=== PATIENT | female | born 1945 | race Caucasian/White ===

== ENCOUNTER 2019-02-14 15:45 | Inpatient (IN) ==
[2019-02-14] MEDS ORDERED: DESYREL PO PRN (17:00)
[2019-02-14] MEDS ORDERED: NEURONTIN PO SCH (17:00)
[2019-02-14] MEDS ORDERED: PHENERGAN IV PRN (17:00)
[2019-02-14] MEDS ORDERED: SODIUM CHLORIDE 0.9% INJ PRN (17:00)
[2019-02-14 17:56] LABS: HEMATOCRIT 47.4 % (37.0-47.0); HEMOGLOBIN 15.1 g/dL (12.0-16.0); MCH 31.7 PG (27-31); MCHC 31.9 g/dL (33-37); MCV 99.6 FL (81-99); MPV 10.8 FL (7.4-10.4); RBC 4.76 XMIL (4.2-5.4); WBC 10.58 X1000 (4.8-10.8)
[2019-02-14 18:19] LABS: CALCIUM 9.5 mg/dL (8.8-10.2); CREATININE 1.4 mg/dL (0.5-0.9); POTASSIUM 5.4 mmol/L (3.5-5.1)
[2019-02-14] MEDS: NS 1,000 ML IV SCH (18:22)
[2019-02-14] MEDS: ROCEPHIN 1 GM in NS 50 ML IV SCH (18:32)
[2019-02-14] MEDS: SOLU-MEDROL IV SCH (18:33)
[2019-02-14] MEDS: LOVENOX SUBQ SCH (18:33)
--- NOTE | 2019-02-14 19:13 | Diag Imaging Result Doc PS360 ---
EXAM: CHEST-2 VIEWS INDICATION: dyspnea TECHNIQUE: 2 views COMPARISON: 04/12/2018 FINDINGS: The lungs appear somewhat hyperinflated suggesting likely mild COPD, stable. The lungs are grossly clear. There is no discrete pleural fluid collection or pneumothorax. The cardiomediastinal silhouette and central vasculature are grossly unremarkable. IMPRESSION: Suggestion of mild COPD. No definite acute chest pathology by plain radiograph. Electronically signed by Mk Gallardo 02/14/2019 7:11 PM
[2019-02-14] MEDS: DUONEB (A & A) INH SCH ×2 (19:36→23:31)
[2019-02-14] MEDS ORDERED: CALTRATE 600 PO SCH (21:00)
[2019-02-14] MEDS ORDERED: COREG PO SCH (21:00)
[2019-02-14] MEDS: DESYREL PO PRN (21:37)
[2019-02-14] MEDS: PERCOCET-10 PO PRN (21:37)
[2019-02-15 00:17] LABS: URINE SOURCE CLEAN CATCH
[2019-02-15 00:24] LABS: BILIRUBIN URINE NEGATIVE (NEGATIVE); BLOOD URINE NEGATIVE (NEGATIVE); COLOR YELLOW; GLUCOSE URINE NEGATIVE (NEGATIVE); KETONE URINE NEGATIVE (NEGATIVE); LEUKOCYTES URINE NEGATIVE (NEGATIVE); NITRITE URINE NEGATIVE (NEGATIVE); PROTEIN URINE NEGATIVE (NEGATIVE); SP GRAVITY URINE 1.013; TURBIDITY URINE CLEAR (CLEAR); UROBILINOGEN URINE NORMAL (NORMAL)
[2019-02-15 00:25] LABS: UR EPITHELIAL CELLS <10 /HPF (<10); URINE BACTERIA NEGATIVE /HPF; URINE RBC <10 /HPF (<10); URINE WBC <10 /HPF (<10)
[2019-02-15] MEDS: SOLU-MEDROL IV SCH ×3 (01:18→22:45)
[2019-02-15] MEDS: DUONEB (A & A) INH SCH ×5 (03:44→21:44)
[2019-02-15] MEDS: NS 1,000 ML IV SCH ×2 (05:56→17:33)
[2019-02-15] MEDS: PERCOCET-10 PO PRN ×4 (05:56→23:58)
[2019-02-15] MEDS: ADVAIR 500/50 DISKUS INH SCH ×2 (08:39→19:44)
[2019-02-15] MEDS ORDERED: PREVNAR 13 IM ONE (08:45)
[2019-02-15] MEDS: CYMBALTA PO SCH (09:25)
[2019-02-15] MEDS: HYZAAR 50/12.5 MG PO SCH (09:25)
[2019-02-15 09:49] LABS: CREATININE 1.2 mg/dL (0.5-0.9); POTASSIUM 4.2 mmol/L (3.5-5.1)
[2019-02-15] MEDS: WELLBUTRIN SR PO SCH ×2 (09:49→20:22)
--- NOTE | 2019-02-15 10:05 | PROGRESS NOTE ---
DATE: 02/15/2019 SUBJECTIVE: Mrs. Martinez was admitted to [facility] with an acute COPD exacerbation. Her initial chest x-ray demonstrated hyperinflation of the lung navarro. There was no evidence of pneumonia, pleural effusion, or pneumothorax. She does smoke. She continues with mild shortness of breath, diffuse wheezing, and a nonproductive cough. O2 saturations are ranging from 94% to 96% on room air. She has a history of chronic low back pain secondary to lumbar spinal stenosis with neurogenic claudication. She continues with persistent low back pain, with numbness and tingling extending into her legs bilaterally. Her symptoms are worse with prolonged sitting and standing. Family reports that she is having difficulty getting around the house. She has had multiple surgeries on her lower spine. She is currently taking Cymbalta, as well as Percocet on a p.r.n. basis. OBJECTIVE: Vital Signs: Blood pressure 146/79, pulse 79, respirations 18, she is afebrile. CV: Regular rate and rhythm. Lungs: Diffuse end-expiratory wheezing throughout all lung navarro. Abdomen: Soft, nontender, with active bowel sounds. Extremities: Without edema. LABORATORY DATA: Various laboratory studies were performed. CBC demonstrated a white count of 10.5, hemoglobin 15.1, hematocrit 47.4, and a platelet count of 215,000. Electrolytes demonstrate the following: Sodium 142, potassium 5.4, BUN 29, creatinine 1.4, and glucose 98. ASSESSMENT AND PLAN: 1. Acute chronic obstructive pulmonary disease exacerbation. She continues with a persistent cough, diffuse wheezing, and mild shortness of breath. We will add Advair 500/50 one puff twice daily, continue intravenous Solu-Medrol as well as DuoNeb nebulizer treatments. We had a long discussion about the importance of smoking cessation. I will begin Wellbutrin XR 150 mg twice daily to help with smoking cessation and to avoid withdrawal symptoms. 2. Hypertension. Her blood pressure is stable. Will continue losartan/hydrochloride 50/12.5 mg daily. 3. Chronic low back pain secondary to lumbar spinal stenosis with neurogenic claudication. We will continue duloxetine 60 mg daily and Percocet 1 tablet every 8 hours as needed for pain. We will consult Physical Therapy for evaluation. cc: Cesar Treviño MD
--- NOTE | 2019-02-15 11:02 | HISTORY AND PHYSICAL ---
CHIEF COMPLAINT: Shortness of breath. HISTORY OF PRESENT ILLNESS: The patient is a 73-year-old lady who is well known to me. She has a history of multiple medical problems including essential hypertension, chronic low back pain secondary to lumbar spinal stenosis with neurogenic claudication, and recent diagnosis of acute Coats's palsy. She presented to the office complaining of increasing shortness of breath and increasing work of breathing. She has shortness of breath with minimal activity. She has bouts of nonproductive coughing which are worse with activity. She does continue to smoke. She denies any fever, chills, nausea or vomiting. A chest x-ray demonstrated hyperinflation of the lung navarro, but no evidence of pneumothorax, pleural effusion or pneumonia. She denies any PND, orthopnea, or increasing peripheral edema. She has had no chest pain, palpitations, or anginal equivalents. PAST MEDICAL HISTORY: Essential hypertension, chronic low back pain secondary to lumbar spinal stenosis with neurogenic claudication. PAST SURGICAL HISTORY: Breast augmentation surgery, tubal ligation and lumbar diskectomy. ALLERGIES: Sulfa. FAMILY HISTORY: Her mother of complications of hemorrhagic stroke. Her father had hypertension, COPD, ischemic heart disease and lung cancer. MEDICATIONS: 1. Cymbalta 60 mg daily. 2. Percocet 10 1 q.8 hours p.r.n. pain. 3. Losartan HCT 50/12.5 mg daily. 4. Trazodone 100 mg at bedtime p.r.n. insomnia. SOCIAL HISTORY: She continues to smoke. She does consume alcoholic beverages. She lives with her spouse. REVIEW OF SYSTEMS: She denies any recent weight gain or weight loss.HEENT: No loss of visual or auditory acuity. CV: No chest pain, palpitations, or anginal equivalents. Pulmonary: See HPI. GI: No reflux, dysphagia, melena or hematochezia. Endocrine: No polyuria, no polydipsia. No cold or heat intolerance. Skin: No easy bruisability. : No leakage of urine with coughing or laughing. Neurologic: No migraines or seizures. Psychiatric: No history of depression. PHYSICAL EXAMINATION: This is a well-developed, well-nourished, 73-year-old lady in mild distress secondary to shortness of breath. VITAL SIGNS: Temperature 98.6 degrees, BP 130/72, respiratory rate 18, and pulse is 99 HEENT: Fundi with arteriolar wall thickening. Pupils equal, round, reactive to light. Extraocular eye movements intact. TMs without bullae. NECK: Supple. No masses, JVD or bruits CV: Regular rate and rhythm. LUNGS: Poor air movement. There is diffuse end expiratory wheezing with forced expiration. ABDOMEN: Soft and nontender with active bowel sounds. No hepatosplenomegaly. No abdominal bruits. EXTREMITIES: Without edema. SKIN: No palpable purpura. BREASTS/INVOICE CLERK/RECTAL: Rectal exams are deferred. NEUROLOGIC: She is alert and oriented to name, place, and time. Cranial nerves 2-12 intact grossly. She has normal tone and strength in the upper and lower extremities. Strength is 4/5 in the lower extremities bilaterally. ASSESSMENT AND PLAN: 1. Acute chronic obstructive pulmonary disease exacerbation. I am going to admit the patient to [facility]. I will begin DuoNeb nebulizer treatments q.4 hours, methylprednisolone 80 mg IV q.8 hours and Rocephin 1 g IV daily pending sputum and blood cultures. We will arrange for a Prevnar vaccination prior to discharge. She does have underlying COPD. It is imperative that she stop smoking. We talked about the risks of continued smoking as well as the benefits of smoking cessation. 2. Hypertension. Blood pressure is stable. I will continue losartan HCT 50/12.5 mg daily. 3. Chronic low back pain secondary to lumbar spinal stenosis with neurogenic claudication. We will continue duloxetine 60 mg p.o. daily and Percocet 10 1 q.8 hours p.r.n. pain. We will consult physical therapy. 4. Given her clinical presentation and comorbid conditions, I believe that admission to the hospital is reasonable. I anticipate that she will be in the hospital for at least 2 midnights, and I will therefore place her in inpatient status. I will begin Lovenox 40 mg subcutaneously daily for DVT prophylaxis. cc: Cesar Treviño MD
[2019-02-15] MEDS: TYLENOL PO PRN ×2 (11:25→17:25)
[2019-02-15] MEDS: CYANOCOBALAMIN IM SCH (15:26)
[2019-02-15] MEDS: ROCEPHIN 1 GM in NS 50 ML IV SCH (17:24)
[2019-02-15] MEDS: LOVENOX SUBQ SCH (17:26)
[2019-02-15] MEDS: DESYREL PO PRN (20:22)
[2019-02-16] MEDS: DUONEB (A & A) INH SCH ×4 (03:27→21:48)
[2019-02-16] MEDS: SOLU-MEDROL IV SCH ×3 (06:18→23:04)
[2019-02-16] MEDS: PERCOCET-10 PO PRN ×3 (06:18→18:50)
--- NOTE | 2019-02-16 07:30 | PROGRESS NOTE ---
DATE: 02/16/2019 SUBJECTIVE: Mrs. Del Rio was admitted to [facility] with an acute COPD exacerbation. We were able to reduce her nebulizer treatments to 4 times daily, and reduce the methylprednisolone to 60 mg IV every 8 hours. She is with complaint of mild dyspnea. O2 saturations are ranging from 91% to 95%. She still has some scattered wheezing with forced expiration. Her cough has improved. She was given the Prevnar vaccination on 02/15/2019. She does have a longstanding history of hypertension. Blood pressure remains well controlled. Systolic blood pressures range from 128 to 135, whereas her diastolic blood pressures have been in the 60s. She does have a longstanding history of chronic low back pain secondary to lumbar spinal stenosis. She is continuing to work with Physical Therapy. OBJECTIVE: Vital Signs: Temperature 98.4 degrees, pulse 81, respirations 16, BP 135/64. CV: Regular rate and rhythm. Lungs: Scattered end expiratory wheezing with forced expiration. There is improved air movement. Abdomen: Soft, nontender, with active bowel sounds. Extremities: Without edema. ASSESSMENT AND PLAN: 1. Acute chronic obstructive pulmonary disease exacerbation. She seems to be wheezing a little bit more this morning as compared to last night. I do not think that we can further reduce the dosage of methylprednisolone that she is taking. We will continue DuoNeb nebulizer treatments and intravenous Rocephin. I will recheck a PA and lateral chest x-ray today. We will continue Wellbutrin SR 150 mg twice daily for smoking cessation. 2. Hypertension. Blood pressure is stable. We will continue losartan/hydrochloride 50/12.5 mg daily. 3. Vitamin B12 deficiency. We will continue vitamin B12 at 1000 mcg intramuscularly daily. cc: Cesar Treviño MD
[2019-02-16] MEDS: CYANOCOBALAMIN IM SCH (09:28)
[2019-02-16] MEDS: WELLBUTRIN SR PO SCH ×2 (09:29→21:09)
[2019-02-16] MEDS: HYZAAR 50/12.5 MG PO SCH (09:29)
--- NOTE | 2019-02-16 09:31 | Diag Imaging Result Doc PS360 ---
EXAM: CHEST-2 VIEWS 02/16/2019 HISTORY: COPD TECHNIQUE: PA and lateral chest COMMENT: Considering differences in inspiration there has been no significant change since 02/14/2019. IMPRESSION: Stable chest. Electronically signed by Cristian Mccloud 02/16/2019 9:29 AM
[2019-02-16] MEDS: ADVAIR 500/50 DISKUS INH SCH ×2 (10:56→19:47)
[2019-02-16] MEDS: ROCEPHIN 1 GM in NS 50 ML IV SCH (16:43)
[2019-02-16] MEDS: LOVENOX SUBQ SCH (16:44)
[2019-02-16] MEDS: CYMBALTA PO SCH (16:45)
[2019-02-16] MEDS: DESYREL PO PRN (21:09)
[2019-02-17] MEDS: DUONEB (A & A) INH SCH ×2 (03:39→09:34)
[2019-02-17] MEDS: PERCOCET-10 PO PRN (04:12)
[2019-02-17] MEDS: SOLU-MEDROL IV SCH (06:51)
[2019-02-17 08:14] VITALS: BP 181/76
[2019-02-17] MEDS: WELLBUTRIN SR PO SCH (08:59)
[2019-02-17] MEDS: HYZAAR 50/12.5 MG PO SCH (08:59)
[2019-02-17] MEDS: CYANOCOBALAMIN IM SCH (08:59)
[2019-02-17] MEDS: CYMBALTA PO SCH ×2 (08:59→09:03)
[2019-02-17] MEDS ORDERED: PREDNISONE PO SCH (09:00)
[2019-02-17] MEDS: ADVAIR 500/50 DISKUS INH SCH (09:34)
[2019-02-17] MEDS ORDERED: ADVAIR 250/50 DISKUS INH SCH (19:30)
--- NOTE | 2019-02-18 20:34 | DISCHARGE SUMMARY ---
ADMISSION DATE: 02/14/2019 DISCHARGE DATE: 02/17/2019 DISCHARGE DIAGNOSES: 1. Chronic obstructive pulmonary disease with acute exacerbation. 2. Nicotine dependence. 3. Essential hypertension. 4. Lumbar spinal stenosis with neurogenic claudication. 5. Chronic renal disease. DISCHARGE INSTRUCTIONS: 1. Return to clinic in 7 to 10 days to see me, Dr. Jimmy Treviño, in anticipation of a transition of care visit. 2. Activity as tolerated. 3. Healthy heart diet. MEDICATIONS: Bupropion SR 150 mg b.i.d., Advair 250/50 one puff b.i.d., prednisone 10 mg daily for 2 weeks, duloxetine 60 mg daily, trazodone 100 mg at bedtime as needed for insomnia, losartan HCT 50/12.5 mg daily, Percocet 10 one q.8 hours p.r.n. pain. DISCHARGE PHYSICAL EXAMINATION: This is a well-developed, well-nourished 73-year-old lady in no apparent distress. She is afebrile, pulse 65, respirations 14, BP 146/86. CV: Regular rate and rhythm. Lungs: Clear. Abdomen: Soft, nontender with active bowel sounds. Extremities: Without edema. Ms. Sofia Martinez presented to my office with complaint of increasing shortness of breath, increasing work of breathing, nonproductive cough and pleuritic chest pain. She continues to smoke 1 pack of cigarettes per day. She denied any fever, chills, nausea or vomiting. A chest x-ray demonstrated hyperinflation of the lung navarro without evidence of pneumothorax, pleural effusion or pneumonia. The patient was treated with DuoNeb nebulizer treatments, IV steroids and IV antibiotics. Over the course of her hospitalization she made steady clinical improvement. We gradually weaned her down on the steroids without regression of her symptoms and transitioned her to oral steroids. We added Advair 250/50 one puff b.i.d., we instructed her on how to use the Advair inhaler and to gargle after each use to avoid candidiasis and oral thrush. We had a long discussion about the risks of continued smoking and the benefits of smoking cessation. We began Wellbutrin SR 150 mg b.i.d. to assist with smoking cessation and to help avoid withdrawal symptoms. A Prevnar vaccination was administered on 02/15/2019. She does have a history of hypertension. Her blood pressure was generally well controlled. We continued her losartan hydrochlorothiazide 50/12.5 mg daily. She does have a longstanding history of chronic low back pain secondary to lumbar spinal stenosis with neurogenic claudication. She was continued on Cymbalta 60 mg daily to help reduce radicular pain and she was continued on Percocet 10 one q.8 hours p.r.n. pain. She is no longer candidate for surgery. She has had multiple epidurals. We did consult physical therapy. She made good progress with physical therapy. We are going to make arrangements for her to continue home health at home with [facility]. Having reached maximum hospital benefit, the patient was discharged in stable condition. cc: Cesar Treviño MD
== END 2019-02-17 09:43 | disposition home health service (06) | DRG 192 ==
LOC: DIRADM 15:45 → 4N 16:32
PROVIDERS: ADMIT Internal Medicine; ATTEND Internal Medicine
CPT/HCPCS: 71020; 71046; 80048; 81001; 82550; 82607; 82746; 85027; 87040; 90670; 94640; 94761; 97161; A9270; J0696; J1650; J2930; J3420; J7030; J7506; J7512

== ENCOUNTER 2019-05-24 16:15 | Observation (INO) ==
[2019-05-24] MEDS ORDERED: DESYREL PO PRN (16:24)
[2019-05-24] MEDS ORDERED: SALINE LOCK IV FLUID XX ONE (16:24)
[2019-05-24 17:08] LABS: HEMATOCRIT 46.1 % (37.0-47.0); HEMOGLOBIN 14.1 g/dL (12.0-16.0); MCHC 30.6 g/dL (33-37); MCV 98.1 FL (81-99); RBC 4.7 XMIL (4.2-5.4); RDW 13.9 % (11.5-14.5); WBC 10.1 X1000 (4.8-10.8)
[2019-05-24 17:20] LABS: CALCIUM 9.6 mg/dL (8.8-10.2); CREATININE 1.3 mg/dL (0.5-0.9); POTASSIUM 4.2 mmol/L (3.5-5.1)
[2019-05-24] MEDS: MORPHINE IV PRN ×2 (17:34→21:36)
[2019-05-24] MEDS: LOVENOX SUBQ SCH (17:37)
[2019-05-24 21:06] LABS: URINE SOURCE CLEAN CATCH
[2019-05-24 21:11] LABS: BILIRUBIN URINE NEGATIVE (NEGATIVE); BLOOD URINE NEGATIVE (NEGATIVE); COLOR YELLOW; GLUCOSE URINE NEGATIVE (NEGATIVE); KETONE URINE NEGATIVE (NEGATIVE); LEUKOCYTES URINE NEGATIVE (NEGATIVE); NITRITE URINE NEGATIVE (NEGATIVE); PROTEIN URINE TRACE mg/dL (NEGATIVE); SP GRAVITY URINE 1.027; TURBIDITY URINE CLEAR (CLEAR); UROBILINOGEN URINE 2 mg/dL (NORMAL)
[2019-05-24 21:13] LABS: UR EPITHELIAL CELLS <10 /HPF (<10); URINE BACTERIA NEGATIVE /HPF; URINE RBC <10 /HPF (<10); URINE WBC <10 /HPF (<10)
[2019-05-25] MEDS: MORPHINE IV PRN ×5 (01:30→19:01)
[2019-05-25] MEDS ORDERED: PHENERGAN IV PRN (08:42)
[2019-05-25] MEDS ORDERED: DESYREL PO PRN (08:42)
[2019-05-25] MEDS ORDERED: PREDNISONE PO SCH (09:00)
[2019-05-25] MEDS ORDERED: CYMBALTA PO SCH (09:00)
[2019-05-25] MEDS ORDERED: HYZAAR 50/12.5 MG PO SCH (09:00)
[2019-05-25] MEDS: NAPROSYN PO SCH ×2 (09:14→09:19)
--- NOTE | 2019-05-25 11:30 | HISTORY AND PHYSICAL ---
CHIEF COMPLAINT: Back pain. HISTORY OF PRESENT ILLNESS: Ms. Sofia Martinez is a 73-year-old lady with a history of essential hypertension, COPD, migraine headaches and chronic low back pain secondary to lumbar spinal stenosis with neurogenic claudication. She presents to the clinic complaining of severe thoracic spine pain which has been worse over the past 10 days. She is unable to lie on her back due to the pain. Any sort of bending, lifting or other physical activity exacerbates the pain. An x-ray of the thoracic spine demonstrated an acute compression fracture at T8 and T9. A previous bone density exam demonstrated osteopenia with increased fracture risk. PAST MEDICAL HISTORY: As above. PAST SURGICAL HISTORY: Bilateral breast enlargement, tubal ligation, lumbar discectomy. SOCIAL HISTORY: She is and lives with her spouse. She does consume alcoholic beverages. She smokes everyday. FAMILY HISTORY: Her father had hypertension, ischemic heart disease, COPD and lung cancer. Her mother had a history of a hemorrhagic CVA. ALLERGIES: Sulfur. MEDICATIONS: 1. Percocet 10/325 1 q 8 hours p.r.n. pain. 2. Proventil HFA inhaler 2 puffs q 6 hours p.r.n. shortness of breath. 3. Cymbalta 60 mg daily. 4. Triamterene/HCTZ 37.5/25 1 p.o. q day. 5. Prednisone 10 mg daily. 6. Carafate 1 gram 4 times daily. 7. Losartan/HCT 50/12.5 mg daily. 8. Nexium 40 mg daily. 9. Trazodone 50 mg q bedtime p.r.n. insomnia. REVIEW OF SYSTEMS: She denies any recent weight gain or weight loss. HEENT: She wears glasses. CV: No chest pain, palpitations or anginal equivalence. Pulmonary: No shortness of breath, PND or orthopnea. GI: No reflux, dysphagia, melena, hematochezia, change in bowel habits or rectal bleeding. Endocrine: No polyuria, no polydipsia. No cold or heat intolerance. Skin: No easy bruisability. : No leakage of urine with coughing or laughing. Neurologic: She has a history of migraines. No history of seizures. PHYSICAL EXAMINATION: VITAL SIGNS: Blood pressure 140/80, pulse 92, weight 143 pounds, height 66 inches, BMI 23.1. She is afebrile. GENERAL: This is a well developed, well nourished 73-year-old lady in no apparent distress. HEENT: Fundi with arteriolar wall thickening. Pupils equal, round and reactive to light. Extraocular eye movements intact. TMs without bullae. NECK: Supple. No masses, JVD or bruits. HEART: Regular rate and rhythm. LUNGS: Clear. ABDOMEN: Soft, nontender with active bowel sounds. No hepatosplenomegaly. No abdominal bruits. EXTREMITIES: Without edema. SKIN: No palpable purpura. BREASTS/SPORTS TEAM MARKETING INTERN/RECTAL: Deferred. MUSCULOSKELETAL: She has marked spinal tenderness over the thoracic spine. NEUROLOGICAL: She is alert and oriented to name, place and time. Cranial nerves II through XII intact grossly. She has diminished light touch in the distal extremities bilaterally. She has no paraspinal muscle tenderness along the lumbar spine. ASSESSMENT AND PLAN: 1. Acute compression fracture of thoracic spine. I am going to admit the patient to [facility] for pain management. We will begin Naprosyn 500 mg b.i.d. and use morphine 2 mg IV q 4 hours p.r.n. pain. I will check an MRI of the thoracic spine with and without contrast to confirm that this is an acute compression fracture. I will consult orthopedic surgery. I suspect this is related to underlying osteopetrosis and wonder if she would be a candidate for kyphoplasty. 2. Hypertension. Her blood pressure is stable. We will continue losartan/HCT 50/12.5 mg daily. 3. Chronic low back pain secondary to lumbar spinal stenosis with neurogenic claudication. She has had multiple back surgeries. She has had epidurals and facet injections over the years. Her most recent MRI showed severe spinal stenosis. While she is on the morphine, I will hold the Percocet. We will continue Cymbalta to reduce neuropathic pain and continue Naprosyn. Given her clinical presentation, I believe that admission to the hospital for pain management is reasonable. I anticipate that she will be in the hospital for only one midnight; and I will, therefore, place her on outpatient status with observation service. cc: Cesar Treviño MD
--- NOTE | 2019-05-25 12:30 | Diag Imaging Result Doc PS360 ---
EXAM: MRI THORACIC SPINE W/WO CON 05/24/2019 HISTORY: COMPRESSION FRACTURES T8 T9 TECHNIQUE: T1-T2 and STIR sagittal, T1 and T2 axial, dose gadolinium-enhanced T1 fat sat sagittal and axial T1. COMMENT: There is decreased T1-weighted signal intensity in T8, which is also compressed anteriorly. There are similar changes in the adjacent lower endplate of T7 in the upper endplate of T9. There is also increased STIR and T2-weighted signal intensity in these areas particularly on the right side. There is intensely increased gadolinium enhancement in this area as well as in the epidural space, particularly on the right, and also in the spinous processes of T7 and T8. IMPRESSION: Anterior compression of the T8 vertebral body with signal changes in the adjacent endplates of T7 and T9, gadolinium enhancement and enhancement and thickening of the epidural space at the level of the T8 vertebral body. The possibility of a pathological process, including discitis and osteomyelitis cannot be excluded. Electronically signed by Cristian Mccloud 05/25/2019 12:28 PM
[2019-05-25 16:45] VITALS: BP 153/81
[2019-05-25] MEDS: LOVENOX SUBQ SCH (18:03)
--- NOTE | 2019-05-26 07:18 | DISCHARGE SUMMARY ---
ADMISSION DATE: 05/24/2019 DISCHARGE DATE: 05/25/2019 DISCHARGE DIAGNOSES: 1. Acute compression fracture of the 8th thoracic vertebra. 2. Essential hypertension. 3. Chronic obstructive pulmonary disease. 4. Stage 3 chronic renal insufficiency. 5. Chronic low back pain secondary to lumbar spinal stenosis with neurogenic claudication. DISCHARGE INSTRUCTIONS: 1. The patient will be transferred via ambulance to the service of Dr. Mk Parnell at [facility]. 2. Activity as tolerated. 3. Healthy heart diet. MEDICATIONS: 1. Cymbalta 60 mg daily. 2. Lovenox 40 mg subcutaneously daily. 3. Losartan HCT 50/12.5 daily. 4. Morphine 4 mg IV q.4 hours p.r.n. pain. 5. Prednisone 10 mg daily. 6. Phenergan 12.5 mg IV q.6 hours p.r.n. pain. 7. Desyrel 100 mg at bedtime p.r.n. insomnia. 8. Advair 250/50 one puff b.i.d. DISCHARGE PHYSICAL EXAMINATION: This is a well-developed, well-nourished, 73-year-old lady in no apparent distress. She is afebrile, pulse 98, respirations 22, and BP 153/81. CV: Regular rate and rhythm. Lungs: Clear. Abdomen: Soft and nontender with active bowel sounds. No hepatosplenomegaly. No abdominal bruits. HOSPITAL COURSE: Mrs. Christina Mratinez presented to my office complaining of thoracic spine pain. X- ray of the thoracic spine demonstrated an acute compression fracture at T8. The patient was admitted to [facility] as an outpatient for pain management. An MRI of the thoracic spine demonstrated anterior compression of the T8 vertebral body with signal changes in the adjacent endplates of T7 and T9. There was increased uptake of gadolinium in the epidural space as well as the spinal processes of T7 and T8. It did not appear that her compression fracture was a straight forward fracture resulting from underlying osteoporosis. We are concerned that other potential etiologies including metastases or osteomyelitis could account for the compression fracture. I have ordered a sedimentation rate as well as a serum protein immunoelectrophoresis which are pending at the time of this discharge. Her C. reactive peptide was 3.35. I spoke to Dr. Mk Parnell who recommended a CT-guided bone biopsy. Because higher staff radiologists do not routinely perform CT-guided bone biopsies, we made arrangements to transfer her to the service of Dr. Mk Parnell at [facility]. She will be scheduled for a CT-guided biopsy in the morning. She has not had any unexplained weight loss or night sweats which would be suggestive of an underlying malignancy. Certainly, it would be worthwhile to consider a CT scan of the thorax as well as abdomen and pelvis to screen for underlying malignancies. Further recommendations will be made based upon the biopsy results. I had a long discussion with and Ms. Martinez as well as their daughter Deb Davies. I have discussed the workup and management. They understand the plan of care, and are agreeable to transfer via ambulance to [facility] to the service of Dr. Mk Parnell. Having reached maximum hospital benefit, the patient was discharged in stable condition. cc: Cesar Treviño MD MTDD
== END 2019-05-25 19:18 | disposition short-term general hospital (02) ==
LOC: DIRADM → 4N 16:15
PROVIDERS: ADMIT Internal Medicine; ATTEND Internal Medicine

== ENCOUNTER 2019-09-19 13:31 | Inpatient (IN) ==
--- NOTE | 2019-09-19 14:37 | PROVIDER DOCUMENTATION ---
HPI-Musculoskeletal Pain/Inj - GENERAL Chief Complaint: Back Pain Stated Complaint: BACK PAIN Time Seen by Provider: 09/19/19 14:09 Source: patient, family (daughter and at bedside) - HX OF PRESENT ILLNESS-MUSKULOSKELTAL Nature of Presenting Problem: 73 YO F presents with c/o back pain that was acute on chronic onset on yesterday. She states she was just laying in the bed and denies any traumatic movements. She does have a hx of osteoporosis and is following Dr. Parnell in [place]. She states she has fractures in her thoracic spine. She is not currently on any treatments for osteoporosis. She is taking percocet 10 TID along with Cymbalta Review of Systems - Adult - REVIEW OF SYSTEMS - ADULT Constitutional: denies: chills, fever Eyes: reports: no symptoms reported Ears, Nose, Mouth & Throat: reports: no symptoms reported Cardiovascular: reports: chest pain (chest wall pain) Respiratory: denies: cough, shortness of breath Gastrointestinal: reports: no symptoms reported Genitourinary: reports: no symptoms reported Musculoskeletal: reports: see HPI, bone pain, back pain Integumentary: reports: no symptoms reported Neurological: reports: no symptoms reported Psychiatric: reports: no symptoms reported Past History - Adult - PAST MEDICAL HISTORY-ADULT Review of Records: reports: Old Records Reviewed, Medications Reviewed Major Childhood Illnesses: reports: denies history Cardiovascular: reports: CAD, HTN Respiratory: reports: COPD Musculoskeletal: reports: other fractures, osteoporosis, spinal fracture - IMMUNIZATION STATUS Childhood Immunizations: See Nurse Assessment Flu Vaccine: See Nurse Assessment - FAMILY HISTORY Family History: reviewed, not pertinent Physical Exam-Injury Related - Physical Exam-Injury Related Initial Vital Signs Reviewed: Yes General Appearance: mild distress (from pain) Eyes: PERRL/EOMI, pink conjunctivae Head, Ears, Nose, Mouth & Throat: moist mucous membranes Neck: supple, normal inspection Respiratory: lungs clear, normal breath sounds, no pleuratic chest pain, no respiratory distress Cardiovascular: tachycardia Abdominal Exam: non tender, soft Extremity: normal gait, normal inspection, no pedal edema, no calf tenderness Integumentary: warm/dry, ecchymosis Psych/Mental Status: oriented x 3 - Glascow Coma Score Best Eye Response ([place]): (4) open spontaneously Best Verbal Response ([place]): (5) oriented Best Motor Response ([place]): (6) obeys commands Progress - PLAN OF CARE/RESULTS Progress/Plan/Lab Results: Laboratory Results - last 24 hr 09/20/19 04:55 Sodium 144 Potassium 3.3 L D Chloride 106 Carbon Dioxide 24 L Anion Gap 14 BUN 27 H Creatinine 1.1 H Estimated GFR/1.73 m2 49 BUN/Creatinine Ratio 25 Glucose 93 Calculated Osmolality 292 Calcium 8.9 Orders Category Date Time Status Admit - [facility] Routine AdmDCTranf 09/19/19 18:38 Active Admit To Inpatient From Observation Routine AdmDCTranf 09/20/19 08:43 Active Activity - Up with Assistance ORDERED Care 09/19/19 18:38 Active Convert to Saline Loc NOW Care 09/20/19 07:53 Active DVT/PE Risk Assess/Protocol [QM] ORDERED Care 09/19/19 18:38 Active Vital Signs Order ROUTINE Care 09/19/19 18:38 Active Regular Diet Diet 09/19/19 Dinner Active CHEST-2 VIEWS [RAD] Stat Exams 09/19/19 14:[address] T-SPINE/L-SPINE W/O CON [CT] Stat Exams 09/19/19 14:38 Completed BETA 2 MICROGLOBULIN SERUM [HH] Routine Lab 09/20/19 09:10 Completed BMP [BASIC METABOLIC PANEL] [CHEM] Routine Lab 09/20/19 04:55 Completed CBC WITH ELECTRONIC DIFF [HEME] Stat Lab 09/19/19 15:45 Completed COMPREHENSIVE METABOLIC PANEL [CHEM] Stat Lab 09/19/19 15:45 Completed PTH INTACT [CHEM] Stat Lab 09/20/19 09:10 Completed SPEP [SERUM PROTEIN ELECTROPHORESIS] [HH] Stat Lab 09/20/19 09:10 Received URINALYSIS W/POSS RFLX CULT [URINALYSIS] Stat Lab 09/19/19 15:45 Completed VITAMIN D 25 HYDROXY Routine Lab 09/19/19 15:45 Completed 0.9% Sodium Chloride Inj [Ns] 1,000 ml Med 09/19/19 18:38 Active IV 100 mls/hr 0.9% Sodium Chloride Inj [Ns] 500 ml Med 09/19/19 14:57 Discontinued IV 999 mls/hr Acetaminophen [Tylenol] Med 09/19/19 18:38 Active 650 mg PO PRN PRN Albuterol [Albuterol Neb] Med 09/19/19 18:38 Active 2.5 mg INH Q4H PRN PRN Amlodipine [Norvasc] Med 09/20/19 09:00 Active 5 mg PO DAILY Enoxaparin [Lovenox] Med 09/19/19 18:38 Active 30 mg SUBQ Q24H Fluticasone/Salmet 250/50 INH [Advair 250/50 Diskus] Med 09/19/19 19:30 Active 1 puff INH RTBID Hydralazine [Apresoline] Med 09/20/19 08:08 Active 10 mg IV Q6H PRN PRN Hydromorphone [Dilaudid] Med 09/19/19 14:56 Discontinued 0.5 mg IV NOW ONE Hydromorphone [Dilaudid] Med 09/19/19 18:38 Active 2 mg IV Q3H PRN PRN Losartan/Hctz [Hyzaar 50/12.5 mg] Med 09/20/19 09:00 Active 1 each PO DAILY Meloxicam [Mobic] Med 09/19/19 18:38 Discontinued 7.5 mg PO NOW ONE Potassium Chloride E.r. [Klor-Con] Med 09/20/19 07:52 Discontinued 40 meq PO NOW ONE Promethazine [Phenergan] Med 09/19/19 18:38 Active 12.5 mg IV Q6H PRN PRN Sodium Chloride 0.9% Med 09/19/19 18:38 Active 10 ml INJ PRN PRN Sucralfate [Carafate] Med 09/19/19 20:00 Active 1 gm PO Q6H Teriparatide [Forteo] Med 09/20/19 09:00 Active 20 microgm SUBQ DAILY Zolpidem [Ambien] Med 09/19/19 18:38 Active 10 mg PO HS PRN PRN Aerosol Treatments Routine Oth 09/19/19 18:38 Completed MDI Treatments Routine Oth 09/19/19 18:38 Completed Transfer/Admit Order [TRANSFER] Routine Transfer 09/19/19 17:02 Completed Result Diagrams: 09/19/19 15:45 09/20/19 04:55 - CT/MRI 1 CT Study: Lumbar Spine, other (thoracic and lumbar) Impression: See EMR Report (EXAM: CT T-SPINE/L-SPINE W/O CON INDICATION: back pain TECHNIQUE: This exam was performed using automated exposure control, adjustment of mA or kV according to patient size, and/or use of iterative reconstruction technique. COMPARISON: MRI of the T-spine dated 05/25/2019 and MRI of the L-spine dated 04/22/2018. No prior dedicated CT of the T-spine or L- spine is available for comparison. FINDINGS: T-spine: There are compression deformities involving multiple thoracic levels including T5, T6, T8, T9, T10, T11, and T12. Only the compression deformities at T8 and T5 were present on the previous MRI. As such, acute or subacute compression fractures cannot be excluded at the other levels. However, there is endplate sclerosis at most of th dutch levels suggesting that they are more likely subacute or subacute with an acute component as well. There is mild bony retropulsion at the T9-10 level and T5-6 level. The central canal is largely patent. There is a fracture involving the transverse process of T5 on the right but it appears chronic or subacute. There are multiple chronic appearing rib fractures bilaterally. However, there is a rib fracture involving the posterior lateral aspect of the seventh rib on the left that could be acute or subacute. There is mild dependent atelectasis involving both lungs. There is no evidence of pneumothorax. L-spine: There is severe degenerative disc disease throughout the lumbar spine with loss of disc space height and marginal osteophyte formation. There is levoscoliosis. There are multiple lumbar spine compression deformities. All were present on the previous study except for the compression deformity at L1 indicating that it could be acute or subacute with or without an acute component. There is mild retropulsion at L1-2 as result of the compression fracture. There is severe central stenosis at several other levels that is stable as compared to the prior MRI paraspinal soft tissues are grossly unremarkable. IMPRESSION: Numerous compression deformities involving multiple thoracic spine and lumbar spine vertebral bodies with several in the thoracic spine and one in the lumbar spine that have developed since previous MRIs as detailed above indicating that they could be acute or subacute with or without an acute component. Electronically signed by Mk Gallardo 09/19/2019 4:39 PM 09/19/19 0485 Interpreting Physician: Mk Gallardo MD Dictated Date/Time: 09/19/19 [id number]) - CONSULTS/PCP/HOSPITALIST Notification #1 *Consult/PCP/Hospitalist*: Dr. Rudd Time Discussed: 17:10 Consult Disposition: Will see in ED, Admit Departure - Departure Date of Disposition Decision: 09/19/19 Time of Disposition Decision: 17:31 DIAGNOSIS: Compression fx, thoracic spine, Spinal stenosis, lumbar region with neurogenic claudication, Nicotine dependence, unspecified, with other nicotine-induced disorders, Chronic renal disease, stage 3, moderately decreased glomerular filtration rate (GFR) between 30-59 mL/min/1.73 square meter, Compression fracture of body of thoracic vertebra Disposition: ADMITTED INPATIENT 09 Certified Medical Emergency: Emergent Condition: Stable - Critical Care Note This patient required my direct & personal management of CC.: No Attestation - Physician/ LIANG Attestation Patient care was provided by Advanced Practice Provider:: No The physician spent face to face time with patient:: Yes Advanced Practice Provider documentation review:: Supervising physician onsite and consulted in the evaluation and care of this patient. The physician did have a face to face encounter with the patient.
[2019-09-19] MEDS ORDERED: DILAUDID IV ONE (14:56)
[2019-09-19] MEDS ORDERED: NS 500 ML IV ONE (14:57)
--- NOTE | 2019-09-19 15:06 | Diag Imaging Result Doc PS360 ---
CHEST-2 VIEWS - 09/19/2019 INDICATION: right sided chest wall pain COMPARISON: 09/12/2019 FINDINGS: There is trace linear scarring at the lateral left lung base stable from prior. The lungs are clear. Heart size is normal. No pneumothorax or pleural effusion. IMPRESSION: No acute process. No change from prior. Electronically signed by Daryl Loyd 09/19/2019 3:04 PM
[2019-09-19 16:01] LABS: URINE SOURCE CLEAN CATCH
[2019-09-19 16:13] LABS: BILIRUBIN URINE NEGATIVE (NEGATIVE); BLOOD URINE NEGATIVE (NEGATIVE); COLOR YELLOW; GLUCOSE URINE NEGATIVE (NEGATIVE); KETONE URINE NEGATIVE (NEGATIVE); LEUKOCYTES URINE NEGATIVE (NEGATIVE); NITRITE URINE NEGATIVE (NEGATIVE); PROTEIN URINE 30 mg/dL (NEGATIVE); SP GRAVITY URINE 1.034; TURBIDITY URINE CLEAR (CLEAR); UR EPITHELIAL CELLS <10 /HPF (<10); URINE BACTERIA NEGATIVE /HPF; URINE RBC <10 /HPF (<10); URINE WBC <10 /HPF (<10); UROBILINOGEN URINE 2 mg/dL (NORMAL)
[2019-09-19 16:15] LABS: BASO# 0.06 X1000 (0.0-0.2); BASO% 0.4 % (0.0-0.8); EOS# 0.08 X1000 (0.0-0.7); EOS% 0.5 % (0.0-10.0); HEMATOCRIT 48.2 % (37.0-47.0); HEMOGLOBIN 14.6 g/dL (12.0-16.0); IMM GRAN# 0.95 X1000 (0.0-0.04); IMM GRAN% 6.4 % (0.0-0.5); LYMPH# 1.27 X1000 (1.2-3.4); LYMPH% 8.6 % (20.5-51.1); MCH 29.9 PG (27-31); MCHC 30.3 g/dL (33-37); MCV 98.6 FL (81-99); MONO# 0.67 X1000 (0.11-0.59); MONO% 4.5 % (1.7-9.3); MPV 11.2 FL (7.4-10.4); NEUT# 11.71 X1000 (1.4-6.5); NEUT% 79.6 % (42.2-75.2); PLT 311 X1000 (130-400); RBC 4.89 XMIL (4.2-5.4); RDW 16.1 % (11.5-14.5); WBC 14.74 X1000 (4.8-10.8)
[2019-09-19 16:33] LABS: ALB/GLOB RATIO 1.2; ALBUMIN 3.8 g/dL (3.5-5.0); CALCIUM 9.6 mg/dL (8.8-10.2); CREATININE 1.4 mg/dL (0.5-0.9); POTASSIUM 3.9 mmol/L (3.5-5.1); TOTAL BILIRUBIN 0.19 mg/dL (0.20-1.00); TOTAL PROTEIN 6.9 g/dL (6.3-8.3)
--- NOTE | 2019-09-19 16:41 | Diag Imaging Result Doc PS360 ---
EXAM: CT T-SPINE/L-SPINE W/O CON INDICATION: back pain TECHNIQUE: This exam was performed using automated exposure control, adjustment of mA or kV according to patient size, and/or use of iterative reconstruction technique. COMPARISON: MRI of the T-spine dated 05/25/2019 and MRI of the L-spine dated 04/22/2018. No prior dedicated CT of the T-spine or L-spine is available for comparison. FINDINGS: T-spine: There are compression deformities involving multiple thoracic levels including T5, T6, T8, T9, T10, T11, and T12. Only the compression deformities at T8 and T5 were present on the previous MRI. As such, acute or subacute compression fractures cannot be excluded at the other levels. However, there is endplate sclerosis at most of these levels suggesting that they are more likely subacute or subacute with an acute component as well. There is mild bony retropulsion at the T9-10 level and T5-6 level. The central canal is largely patent. There is a fracture involving the transverse process of T5 on the right but it appears chronic or subacute. There are multiple chronic appearing rib fractures bilaterally. However, there is a rib fracture involving the posterior lateral aspect of the seventh rib on the left that could be acute or subacute. There is mild dependent atelectasis involving both lungs. There is no evidence of pneumothorax. L-spine: There is severe degenerative disc disease throughout the lumbar spine with loss of disc space height and marginal osteophyte formation. There is levoscoliosis. There are multiple lumbar spine compression deformities. All were present on the previous study except for the compression deformity at L1 indicating that it could be acute or subacute with or without an acute component. There is mild retropulsion at L1-2 as result of the compression fracture. There is severe central stenosis at several other levels that is stable as compared to the prior MRI paraspinal soft tissues are grossly unremarkable. IMPRESSION: Numerous compression deformities involving multiple thoracic spine and lumbar spine vertebral bodies with several in the thoracic spine and one in the lumbar spine that have developed since previous MRIs as detailed above indicating that they could be acute or subacute with or without an acute component. Electronically signed by Mk Gallardo 09/19/2019 4:39 PM
[2019-09-19] MEDS ORDERED: MOBIC PO ONE (18:38)
[2019-09-19] MEDS ORDERED: SODIUM CHLORIDE 0.9% INJ PRN (18:38)
[2019-09-19] MEDS: DILAUDID IV PRN ×2 (18:57→22:12)
[2019-09-19] MEDS: ADVAIR 250/50 DISKUS INH SCH (20:40)
[2019-09-19] MEDS: NS 1,000 ML IV SCH (20:44)
[2019-09-19] MEDS: CARAFATE PO SCH (20:44)
[2019-09-19] MEDS: LOVENOX SUBQ SCH (20:45)
[2019-09-19] MEDS: AMBIEN PO PRN (21:31)
[2019-09-20] MEDS: DILAUDID IV PRN ×7 (01:13→22:53)
[2019-09-20] MEDS: CARAFATE PO SCH ×4 (01:56→20:11)
[2019-09-20] MEDS: NS 1,000 ML IV SCH ×2 (04:49→15:51)
[2019-09-20 05:54] LABS: CALCIUM 8.9 mg/dL (8.8-10.2); CREATININE 1.1 mg/dL (0.5-0.9); POTASSIUM 3.3 mmol/L (3.5-5.1)
[2019-09-20] MEDS: TYLENOL PO PRN (06:16)
[2019-09-20] MEDS: HYZAAR 50/12.5 MG PO SCH ×2 (06:17→11:50)
[2019-09-20] MEDS ORDERED: KLOR-CON PO ONE (07:52)
[2019-09-20] MEDS: ALBUTEROL NEB INH PRN ×2 (07:54→16:04)
[2019-09-20] MEDS: ADVAIR 250/50 DISKUS INH SCH ×2 (07:54→19:14)
[2019-09-20] MEDS ORDERED: APRESOLINE IV PRN (08:08)
--- NOTE | 2019-09-20 08:18 | PROGRESS NOTE ---
DATE: 09/20/2019 SUBJECTIVE: Ms. Martinez has numerous compression fractures in the thoracic spine and lumbar spine. She does have a history of osteoporosis. She had an isolated compression fracture several months ago. She was not a candidate for kyphoplasty. Serum protein electrophoresis was normal. A bone biopsy demonstrated no osteomyelitis. We have started Dilaudid 2 mg intravenous every 3 hours. She reports that her pain drops to a 3/10 or 4/10 for 2 hours following administration of the Dilaudid. After 2 hours, her pain is back to a 9/10 or 10/10. Her pain is exacerbated by any sort of movement. Her blood pressure is fluctuating. Systolic blood pressures have been in the 170s and 180s; whereas, her diastolic blood pressures have ranged from 90 to 106. She denies any chest pain, palpitations, or anginal equivalents. OBJECTIVE: Vital Signs: Blood pressure 184/106, pulse 96, respirations 18. Cardiovascular: Regular rate and rhythm. Lungs: Clear. Abdomen: Soft and nontender with active bowel sounds. Musculoskeletal: There is significant tenderness over the thoracic and lumbar spines. ASSESSMENT AND PLAN: 1. Multilevel compression fractures of the thoracic spine and lumbar spine secondary to osteoporosis. We will continue Dilaudid on an as needed basis for pain. I hope to transition her to a long-acting pain medication. She understands that she will never be pain free, but we hope to control the pain well enough that she is able to function. She is largely bed bound at this time. She has no preexisting hypercalcemia. Creatinine is normal. We will begin Forteo daily. 2. Hypertension. Blood pressure is too high. I will add amlodipine 5 mg daily. 3. Hypokalemia. I will give her potassium 40 mEq by mouth x1 dose and recheck a basic metabolic panel in the morning. cc: Cesar Treviño MD
--- NOTE | 2019-09-20 09:26 | HISTORY AND PHYSICAL ---
CHIEF COMPLAINT: Severe back pain. HISTORY OF PRESENT ILLNESS: Ms. Sofia Martinez is a 73-year-old lady with a history of essential hypertension, COPD, migraine headaches, and chronic low back pain secondary to lumbar spinal stenosis with neurogenic claudication. She had previously been admitted to [facility] in April 2019 with severe thoracic spine pain. An x-ray of the thoracic spine demonstrated an acute compression fracture at T8 and T9. A subsequent workup demonstrated no evidence of multiple myeloma or osteomyelitis. We felt that her compression fractures were due to underlying osteoporosis. She presented to the ER complaining of worsening thoracic spine pain. Pain was significantly worse with any sort of movement. Her family reported that she had largely been bed-bound. She was noted to have multiple thoracic compression fractures at T5, T6, T8, T9, T10, T11 and T12. She was admitted for pain control. PAST MEDICAL HISTORY: Essential hypertension, COPD, osteoporosis, chronic low back pain secondary to lumbar spinal stenosis with neurogenic claudication. PAST SURGICAL HISTORY: Lumbar diskectomy, tubal ligation, bilateral breast enlargement, bone biopsy. ALLERGIES: Sulfa. FAMILY HISTORY: Her father had hypertension, ischemic heart disease, COPD and lung cancer. Her mother had a history of hemorrhagic CVA. SOCIAL HISTORY: She is and lives with her spouse. She smokes daily. She does not consume alcoholic beverages. MEDICATIONS: 1. Albuterol nebulized q.6 hours p.r.n. 2. Advair 250/50 one puff b.i.d. 3. Losartan HCT 50/12.5 mg daily. 4. Carafate 1 g q.6 hours. 5. Duloxetine 60 mg daily. 6. Percocet 10/325 one q.6 hours p.r.n. pain. 7. Ambien 10 mg at bedtime p.r.n. insomnia. 8. Nexium 40 mg daily, REVIEW OF SYSTEMS: She denies any recent weight gain or weight loss.HEENT: She has had no loss of visual or auditory acuity. CV: No chest pain, palpitations, or anginal equivalents. Pulmonary: No shortness of breath, PND, orthopnea. GI: No reflux, dysphagia, melena, hematochezia, change in bowel habits or rectal bleeding. Endocrine: No polyuria. No polydipsia. No cold or heat intolerance. Skin: No easy bruisability. : No leakage of urine with coughing or laughing. Neuro: She has a history of migraines. PHYSICAL EXAMINATION: This is a well-developed, well-nourished, 73-year-old lady in no apparent distress. VITAL SIGNS: She is afebrile. Pulse 87, respirations 21, BP 186/90. HEENT: Fundi with arteriolar wall thickening. Pupils equal, round, reactive to light. Extraocular movements intact. TMs without bullae. NECK: Supple. No masses, JVD or bruits. CV: Regular rate and rhythm. LUNGS: Clear. ABDOMEN: Soft, nontender with active bowel sounds. No hepatosplenomegaly. No abdominal bruits. EXTREMITIES: Without edema. SKIN: No palpable purpura. BREASTS, DIRECT SELLING COUNSELOR AND RECTAL EXAMS: Deferred. NEUROLOGIC: She is alert and oriented to name, place, and time. Cranial nerves 2-12 intact grossly. She has decreased light touch in the distal extremities bilaterally. MUSCULOSKELETAL: She has tenderness over the thoracic spine. ASSESSMENT AND PLAN: 1. Multiple compression fractures secondary to underlying osteoporosis. I will admit her to [facility] for pain control. I will begin hydrocodone 2 mg intravenous every 3 hours p.r.n. Once we have some idea of the amount of pain medication needed to keep her comfortable, we will transition her to long-acting oral medicines. She understands that she will never be pain free, but I am hoping to reduce the pain to a level where she can lead a more active life. She is largely bed- bound. Her serum sodium was 8.9, creatinine was 1.4. I will give her normal saline at 100 mL per hour. If her creatinine normalizes, I will begin Forteo for the underlying osteoporosis. We are going to stop the Nexium and began Pepcid 40 mg daily. I will check a vitamin D level. 2. Hypertension. Blood pressure is elevated. I suspect that is due to the underlying pain. We will adjust her medicines and follow her blood pressure closely. 3. Chronic obstructive pulmonary disease. She is breathing comfortably. We will continue Advair and DuoNeb nebulizer treatments. Given her comorbid condition and clinical presentation, I believe that it is reasonable to admit her to [facility] for pain management. At this point in time, I anticipate that she will be in the hospital for at least 1 midnight and I will therefore place her in outpatient status with observation services. I will begin Lovenox for DVT prophylaxis. cc: Cesar Treviño MD
[2019-09-20] MEDS: NORVASC PO SCH (10:00)
[2019-09-20] MEDS: FORTEO SUBQ SCH (11:09)
[2019-09-20] MEDS: LOVENOX SUBQ SCH (18:10)
[2019-09-20] MEDS: PHENERGAN IV PRN (18:13)
[2019-09-21] MEDS: PHENERGAN IV PRN ×3 (01:22→21:23)
[2019-09-21] MEDS: DILAUDID IV PRN ×3 (01:59→08:19)
[2019-09-21] MEDS: CARAFATE PO SCH ×4 (01:59→21:23)
[2019-09-21] MEDS: NS 1,000 ML IV SCH ×2 (02:09→13:09)
[2019-09-21] MEDS: ADVAIR 250/50 DISKUS INH SCH ×2 (07:43→19:49)
[2019-09-21] MEDS: HYZAAR 50/12.5 MG PO SCH (08:05)
[2019-09-21] MEDS: FORTEO SUBQ SCH (08:05)
[2019-09-21] MEDS: NORVASC PO SCH (08:05)
[2019-09-21] MEDS: HYZAAR 100/12.5 MG TAB PO SCH (08:05)
[2019-09-21] MEDS ORDERED: DILAUDID IV ONE (08:24)
[2019-09-21] MEDS ORDERED: BENADRYL IV PRN (09:15)
[2019-09-21] MEDS ORDERED: ZOFRAN IV PRN (09:15)
[2019-09-21] MEDS ORDERED: NARCAN IV PRN (09:15)
[2019-09-21] MEDS ORDERED: LR 1,000 ML IV SCH (09:15)
[2019-09-21] MEDS ORDERED: DILAUDID PCA VIAL IV PRN (09:15)
--- NOTE | 2019-09-21 09:39 | PROGRESS NOTE ---
DATE: 09/21/2019 SUBJECTIVE: Mrs. Martinez has a history of essential hypertension. Blood pressure is trending down but is still too high. She denies any chest pain, palpitations, or anginal equivalents. She had a rough night last night. She had increasing pain in her back. A CT scan of the thoracic spine demonstrated multilevel compression fractures. She has had a previous vertebral biopsy, which was negative for osteomyelitis and multiple myeloma. The pain reduces to a 5 with Dilaudid and within 2 hours is back to a 10. OBJECTIVE: Vital signs: Temperature 97.9 degrees, pulse 102, BP 152/112. Cardiovascular: Tachycardic, regular S1, S2. Lungs: Clear. Abdomen: Soft, nontender with active bowel sounds. ASSESSMENT AND PLAN: 1. Hypertension. Her blood pressure is too high. I will increase the losartan HCT to 100/12.5 mg daily. 2. Acute pain secondary to multiple compression fractures. She received 7 doses of Dilaudid 2 mg IV and is still having significant pain. I will bolus her with an additional 2 mg of Dilaudid. I have spoken to Dr. Evangelista Hoang for consideration of a TECHNOLOGY ANALYST pump to hopefully improve pain control. As stated earlier, the biopsy for myeloma was negative. A serum protein electrophoresis his pending. Her PTH was normal. Her vitamin D level was 45. Her beta 2 microglobulin was elevated. I am going to check a light chain ratio to rule out non- secreting myeloma. cc: Cesar Treviño MD
[2019-09-21] MEDS: LOVENOX SUBQ SCH (17:41)
[2019-09-22] MEDS: CARAFATE PO SCH ×5 (01:06→20:49)
[2019-09-22] MEDS: NS 1,000 ML IV SCH ×2 (05:22→09:43)
[2019-09-22] MEDS: PHENERGAN IV PRN (07:35)
[2019-09-22] MEDS: ADVAIR 250/50 DISKUS INH SCH ×2 (07:35→20:08)
[2019-09-22] MEDS: NORVASC PO SCH (09:44)
[2019-09-22] MEDS: FORTEO SUBQ SCH (09:44)
[2019-09-22] MEDS: HYZAAR 100/12.5 MG TAB PO SCH (09:44)
--- NOTE | 2019-09-22 10:01 | Diag Imaging Result Doc PS360 ---
EXAM: MRI THORACIC SPINE W/O CON INDICATION: compression fx, worsening pain TECHNIQUE: COMPARISON: 05/25/2019 FINDINGS: There are numerous compression deformities at multiple levels throughout the thoracic spine including compression deformities from T5 through T12. Only the compression deformities at T8 and T5 present on the previous study. The milder compression deformity is a seven but at this level there is increased signal on STIR sequence suggesting that it is acute or subacute. There is very minimal if any increased signal on STIR involving the other levels indicating that they are late subacute at the earliest. There is some bony retropulsion at multiple levels that is causing mild to moderate narrowing of the central canal, probably most significant at T8 4 there is moderate central canal narrowing. Review of the surrounding soft tissues reveals a trace left pleural effusion. IMPRESSION: 1.Numerous thoracic spine compression deformities that have developed during the interval as detailed above. Nonetheless, almost all are late subacute to chronic except for perhaps T7, which appears to be more recent. 2.Associated mild to moderate central canal narrowing related to bony retropulsion as described. Electronically signed by Mk Gallardo 09/22/2019 9:59 AM
--- NOTE | 2019-09-22 10:18 | Diag Imaging Result Doc PS360 ---
EXAM: MRI LUMBAR SPINE W/O CONTRAST INDICATION: compression fractures, worsening pain TECHNIQUE: COMPARISON: 04/22/2018 FINDINGS: There is some degree of compression involving virtually every lumbar vertebral body except for perhaps L2. All of these are stable except for L1, which was not present on the previous study. On the STIR sequence, there is very subtle increased signal mainly at the inferior endplate of L1 suggesting that it is late subacute. Surrounding soft tissues are essentially unremarkable. Segmental analysis of the lumbar spine is detailed below. T12-L1: Essentially unremarkable. L1-2: There is a broad-based disc osteophyte complex causing mild central stenosis that was not present on the previous study. L2-3: There is a broad-based disc bulge that is causing severe central spinal stenosis and at least moderate foraminal stenosis that is essentially stable. L3-4: There is a broad-based disc osteophyte complex is causing very severe central spinal stenosis and severe bilateral foraminal stenosis that is essentially stable. L4-5: There is a broad-based disc osteophyte complex with a more prominent left lateralizing component. It is causing very severe left neuroforaminal stenosis and severe central canal stenosis. This level is essentially stable. L5-S1: There is a broad-based disc osteophyte complex with a more prominent left lateralizing component causing severe left neuroforaminal stenosis. There is only mild central canal narrowing. This level is essentially stable. IMPRESSION: 1.Multiple compression deformities throughout the lumbar spine as described. All are stable except for L1, which has developed during the interval. Minimal marrow edema suggests that this is likely late subacute. 2.Advanced multilevel degenerative arthropathy that is largely stable except for L1-2 as described. Electronically signed by Mk Gallardo 09/22/2019 10:16 AM
[2019-09-22] MEDS: TYLENOL PO PRN ×2 (11:31→23:22)
[2019-09-22] MEDS: DILAUDID PCA VIAL IV PRN (17:45)
[2019-09-22] MEDS: LOVENOX SUBQ SCH (18:40)
[2019-09-22] MEDS ORDERED: RELISTOR SUBQ ONE (18:56)
[2019-09-22] MEDS ORDERED: LR 1,000 ML IV SCH (20:00)
[2019-09-22 23:33] LABS: URINE SOURCE CLEAN CATCH
[2019-09-23 00:31] LABS: BILIRUBIN URINE NEGATIVE (NEGATIVE); BLOOD URINE TRACE (NEGATIVE); COLOR YELLOW; GLUCOSE URINE NEGATIVE (NEGATIVE); KETONE URINE NEGATIVE (NEGATIVE); LEUKOCYTES URINE NEGATIVE (NEGATIVE); NITRITE URINE NEGATIVE (NEGATIVE); PROTEIN URINE TRACE mg/dL (NEGATIVE); SP GRAVITY URINE 1.016; TURBIDITY URINE CLEAR (CLEAR); UR EPITHELIAL CELLS <10 /HPF (<10); URINE BACTERIA NEGATIVE /HPF; URINE RBC <10 /HPF (<10); URINE WBC <10 /HPF (<10); UROBILINOGEN URINE NORMAL (NORMAL)
[2019-09-23] MEDS: CARAFATE PO SCH ×4 (01:53→21:28)
[2019-09-23] MEDS: PHENERGAN IV PRN ×2 (02:02→17:11)
[2019-09-23] MEDS: TYLENOL PO PRN ×2 (06:52→17:09)
[2019-09-23] MEDS: ADVAIR 250/50 DISKUS INH SCH ×2 (08:05→19:46)
[2019-09-23] MEDS: NORVASC PO SCH (09:44)
[2019-09-23] MEDS: HYZAAR 100/12.5 MG TAB PO SCH (09:44)
[2019-09-23] MEDS ORDERED: INSULIN PEN NEEDLES MISC PRN (10:18)
[2019-09-23] MEDS: FORTEO SUBQ SCH (10:24)
--- NOTE | 2019-09-23 12:42 | Diag Imaging Result Doc PS360 ---
EXAM: CHEST-PORTABLE HISTORY: cough, dyspnea TECHNIQUE: Single view COMPARISON: 09/19/2019 FINDINGS: The lungs are well expanded. The heart is not enlarged. The vessels are not distended. No effusion identified. There are old left rib fractures. Increased density laterally in the left lung may be secondary to callous or could be due to a small infiltrate. IMPRESSION: Questionable small left infiltrate Electronically signed by Alexandre Stein 09/23/2019 12:39 PM
--- NOTE | 2019-09-23 13:34 | PROGRESS NOTE ---
DATE: 09/23/2019 SUBJECTIVE: Ms. Martinez is with complaint of chills and diffuse muscle aches. She had frequent episodes of nausea and vomiting last night. She is now with complaint of a worsening cough, pleuritic chest pain with deep inspiration and fits of coughing as well as wheezing. She reports that she is mildly short of breath. She is still having moderate pain even on the Dilaudid [employer] DEMONSTRATOR pump. Blood pressure is fluctuating. Systolic blood pressures have been in the 160s and 170s whereas the diastolic blood pressures have been in the 80s. OBJECTIVE: Vital signs: Temperature 98.2 degrees, pulse 93, respirations 20, blood pressure 167/87. Cardiovascular: Regular rate and rhythm. Lungs: Scattered wheezing with forced expiration. Abdomen: Soft, nontender with active bowel sounds. LABORATORY DATA: A urinalysis obtained on 09/22/2019 was within normal limits. ASSESSMENT AND PLAN: 1. Multiple compression fractures secondary to severe underlying osteoporosis. We will continue the Dilaudid [employer] DEMONSTRATOR pump for pain management as well as low-dose Mobic. Workup is negative for hyperparathyroidism, multiple myeloma or obvious evidence of osteomyelitis. Hopefully we will be able to transition her from Dilaudid [employer]Y PLAN DEMONSTRATOR to oral OxyContin. 2. Chills. Her urinalysis was negative yesterday. I am going to check a CBC, BMP and a rapid A and B flu. Certainly given the wheezing and the nausea and vomiting, there is the possibility of aspiration. I will check a PA and lateral chest x-ray. 3. Hypertension. Her blood pressure is fluctuating. I have just increased the dosage of losartan HCT to 100/12.5 mg daily. We will continue Hyzaar and Norvasc and I will use Apresoline on a p.r.n. basis. cc: Cesar Treviño MD
[2019-09-23 13:35] LABS: HEMATOCRIT 41.8 % (37.0-47.0); HEMOGLOBIN 12.6 g/dL (12.0-16.0); MCH 30.1 PG (27-31); MCHC 30.1 g/dL (33-37); MPV 10.7 FL (7.4-10.4); RBC 4.18 XMIL (4.2-5.4); RDW 15.3 % (11.5-14.5); WBC 10.1 X1000 (4.8-10.8)
[2019-09-23 13:48] LABS: AGAP 9; BUN 13 mg/dL (8-22); CALCIUM 9.8 mg/dL (8.8-10.2); CHLORIDE 97 mmol/L (98-107); COSMO 274; CREATININE 0.8 mg/dL (0.5-0.9); ESTIMATED GFR > 60; GLUCOSE 106 mg/dL (70-104); POTASSIUM 3.9 mmol/L (3.5-5.1); SODIUM 137 mmol/L (136-145); TCO2 31 mmol/L (25-35)
[2019-09-23] MEDS: LOVENOX SUBQ SCH (18:03)
[2019-09-23 18:47] LABS: INR 1.06
[2019-09-23 18:48] LABS: PTT 35.7 Seconds (22.3-41.8)
[2019-09-24] MEDS: CARAFATE PO SCH ×4 (02:34→21:03)
[2019-09-24] MEDS: DILAUDID PCA VIAL IV PRN (04:25)
[2019-09-24] MEDS: ADVAIR 250/50 DISKUS INH SCH ×3 (07:49→20:15)
[2019-09-24] MEDS: ALBUTEROL NEB INH PRN ×3 (07:50→20:12)
[2019-09-24] MEDS ORDERED: DILAUDID IM ONE (08:31)
[2019-09-24] MEDS: NORVASC PO SCH (08:46)
[2019-09-24] MEDS: HYZAAR 100/12.5 MG TAB PO SCH (08:49)
[2019-09-24] MEDS: FORTICAL NAS SCH (08:52)
[2019-09-24] MEDS: OXYCONTIN PO SCH ×2 (09:02→21:01)
[2019-09-24] MEDS: MYCOSTATIN SUSP PO SCH ×5 (09:02→21:07)
[2019-09-24] MEDS: FORTEO SUBQ SCH (09:02)
[2019-09-24] MEDS: SPIRIVA INH SCH (09:36)
--- NOTE | 2019-09-24 11:54 | PROGRESS NOTE ---
DATE: 09/24/2019 Ms. Martinez has a history of COPD for which she is taking Advair. She has developed a beefy red tongue, mouth soreness and whitish plaques in the oral cavity consistent with thrush. She is breathing comfortably. She has a history of chronic low back pain secondary to lumbar spinal stenosis. An MRI demonstrated multilevel severe spinal stenosis. She was also admitted with multiple compression fractures of the thoracic and lumbar spine. Workup has ruled out multiple myeloma, hyperparathyroidism and vitamin D deficiencies. She has been on a Dilaudid [employer] RE[employer]ISHER pump over the past 3 days. They lost IV access this morning. She has gotten a total of 60 mg of IV Dilaudid over the past 12 hours. She reports that she still has fairly significant upper and lower back pain. OBJECTIVE: Vital Signs: Temperature 98 degrees, pulse is 95, respirations 20, BP 132/71. CV: Regular rate and rhythm. Lungs: Clear. Abdomen: Soft nontender with active bowel sounds. ASSESSMENT AND PLAN: 1. Multiple compression fractures secondary to severe underlying osteoporosis. We will transition her from the Dilaudid [employer] REFINISHER pump to long extended release Hydrocodone based on the ratio of 1:2. She potentially she could take up to 120 mg of OxyContin. I really do not want to start that high for fear of suppressing her breathing with underlying COPD. I will begin OxyContin 40 mg b.i.d. and use Percocet as needed for breakthrough pain. We will continue meloxicam and I am going to add Miacalcin nasal spray because of its analgesic properties. We will continue Forteo for aggressive management of the underlying osteoporosis. 2. Hypertension. Her blood pressure is stable. We will continue her current regimen of medications. cc: Cesar Treviño MD
[2019-09-24] MEDS: TYLENOL PO PRN (15:13)
[2019-09-24] MEDS: LOVENOX SUBQ SCH (18:12)
[2019-09-25] MEDS: TYLENOL PO PRN (02:11)
[2019-09-25] MEDS: CARAFATE PO SCH ×4 (02:11→20:02)
[2019-09-25] MEDS: SPIRIVA INH SCH (07:42)
[2019-09-25] MEDS: ADVAIR 250/50 DISKUS INH SCH ×2 (07:43→19:09)
[2019-09-25] MEDS: ALBUTEROL NEB INH PRN ×3 (07:43→19:10)
[2019-09-25] MEDS: OXYCONTIN PO SCH ×2 (08:14→20:02)
[2019-09-25] MEDS: HYZAAR 100/12.5 MG TAB PO SCH (08:15)
[2019-09-25] MEDS: MYCOSTATIN SUSP PO SCH ×4 (08:15→20:02)
[2019-09-25] MEDS: NORVASC PO SCH (08:15)
[2019-09-25] MEDS: FORTICAL NAS SCH (08:15)
[2019-09-25] MEDS: FORTEO SUBQ SCH (08:15)
--- NOTE | 2019-09-25 11:19 | PROGRESS NOTE ---
DATE: 09/25/2019 SUBJECTIVE: Ms. Martinez has a history of thrush secondary to chronic use of Advair. We started her on nystatin swish and swallow. She has less tongue soreness and swelling this morning. She is with complaint of constipation, diffuse abdominal discomfort, and nausea. She has not had a bowel movement in several days. We started her on OxyContin yesterday with Percocet for breakthrough pain. Family reports that her pain seems under better control. They felt had it not been for her stomach issues, that she would most likely have slept peacefully last night. OBJECTIVE: Temperature, she is afebrile, pulse 92, respiratory rate 18, BP 107/60. CV: Regular rate and rhythm. Lungs: Clear. Abdomen: Soft, nontender, with active bowel sounds. No hepatosplenomegaly. No abdominal bruits. HEENT: Tongue is beefy red. ASSESSMENT AND PLAN: 1. Thrush. We will continue nystatin swish and swallow. 2. Chronic low back pain secondary to lumbar spinal stenosis and multiple thoracic vertebral fractures. We will continue Forteo daily injections, Caltrate with vitamin D twice a day, and use OxyContin 40 mg twice a day and Percocet 5 every 6 hours as needed for breakthrough pain. 3. Constipation. I will give her a Dulcolax suppository and begin MiraLAX 1 scoopful in 8 ounces of water daily. cc: Cesar Treviño MD
[2019-09-25] MEDS: DULCOLAX PR PRN (11:44)
[2019-09-25] MEDS: PHENERGAN PO PRN (13:09)
[2019-09-25] MEDS: PERCOCET-5 PO PRN (16:12)
[2019-09-25] MEDS: LOVENOX SUBQ SCH (18:00)
[2019-09-26] MEDS: CARAFATE PO SCH ×4 (01:59→21:29)
[2019-09-26] MEDS: PERCOCET-5 PO PRN ×2 (03:53→13:20)
[2019-09-26] MEDS: ALBUTEROL NEB INH PRN (07:36)
[2019-09-26] MEDS: SPIRIVA INH SCH (07:36)
[2019-09-26] MEDS: ADVAIR 250/50 DISKUS INH SCH ×2 (07:40→22:51)
[2019-09-26] MEDS: OXYCONTIN PO SCH ×2 (08:48→21:29)
[2019-09-26] MEDS: MYCOSTATIN SUSP PO SCH ×4 (08:48→21:29)
[2019-09-26] MEDS: HYZAAR 100/12.5 MG TAB PO SCH (08:48)
[2019-09-26] MEDS: NORVASC PO SCH (08:48)
[2019-09-26] MEDS: FORTICAL NAS SCH (08:48)
[2019-09-26] MEDS: FORTEO SUBQ SCH (08:49)
--- NOTE | 2019-09-26 12:34 | Diag Imaging Result Doc PS360 ---
EXAM: US GB < RUQ (LIMITED) INDICATION: RUQ ABDOMINAL PAIN, NAUSEA COMPARISON: None. FINDINGS: The gallbladder appears normal with no stones, wall thickening, or pericholecystic fluid. The common bile duct is mildly dilated measuring up to 8 mm in diameter. Sonographic Bethea's sign was reported to be negative. The liver is grossly unremarkable. Portal venous flow is hepatopetal. The visualized pancreas is unremarkable. The aorta and IVC are grossly unremarkable. The right kidney is grossly unremarkable. IMPRESSION: Mildly dilated common bile duct. Unremarkable right upper quadrant ultrasound, otherwise. Electronically signed by Mk Gallardo 09/26/2019 12:31 PM
[2019-09-26] MEDS: TYLENOL PO PRN (17:09)
--- NOTE | 2019-09-26 17:58 | PROGRESS NOTE ---
DATE: 09/26/2019 Mrs. Martinez reports that she has less tongue swelling and swelling after using the nystatin swish and swallow. She has passed a large bowel movement but is still with complaint of epigastric and right upper quadrant discomfort with nausea, dry heaves and diminished appetite. She rested fairly comfortably throughout the day on the OxyContin with Percocet for breakthrough pain. She did have a significant episode of pain during the night. She is afebrile. Vital signs are stable. CV: Regular rate and rhythm. Lungs: Clear. Abdomen: Mild right upper quadrant tenderness to deep palpation. No rebound or guarding. Extremities: Without edema. ASSESSMENT AND PLAN: 1. Thrush. We will continue nystatin swish and swallow 5 mL q.6 hours. 2. Multilevel compression fractures of the thoracic spine. We will continue Caltrate with vitamin D, OxyContin 40 mg b.i.d., Percocet 5 mg every 6 hours as needed for pain as well as Forteo injections. 3. Right upper quadrant abdominal pain. We will arrange for an ultrasound of the gallbladder. cc: Cesar Treviño MD
[2019-09-26] MEDS: LOVENOX SUBQ SCH (18:03)
[2019-09-26] MEDS: AMBIEN PO PRN (21:33)
[2019-09-27] MEDS: PERCOCET-5 PO PRN (02:52)
[2019-09-27] MEDS: CARAFATE PO SCH ×4 (02:53→20:34)
[2019-09-27] MEDS: SPIRIVA INH SCH (07:50)
[2019-09-27] MEDS: ADVAIR 250/50 DISKUS INH SCH ×2 (07:51→23:29)
[2019-09-27] MEDS: HYZAAR 100/12.5 MG TAB PO SCH (09:04)
[2019-09-27] MEDS: MYCOSTATIN SUSP PO SCH ×4 (09:04→20:34)
[2019-09-27] MEDS: NORVASC PO SCH (09:04)
[2019-09-27] MEDS: OXYCONTIN PO SCH ×2 (09:04→20:34)
[2019-09-27] MEDS: FORTEO SUBQ SCH (09:05)
[2019-09-27] MEDS: FORTICAL NAS SCH (09:07)
[2019-09-27] MEDS: TYLENOL PO PRN (13:49)
[2019-09-27] MEDS: PHENERGAN PO PRN (15:32)
[2019-09-27] MEDS: LOVENOX SUBQ SCH (17:43)
--- NOTE | 2019-09-27 19:12 | PROGRESS NOTE ---
DATE: 09/27/2019 SUBJECTIVE: Ms. Martinez was admitted to [facility] for pain management. CT scan and subsequent MRI of the thoracic spine demonstrated multilevel compression fractures. She had been on a PROJ MGR pump for 3 days before losing IV access. At that time we transitioned her to OxyContin with p.r.n. Percocet. She seems groggy, confused at times and having persistent nausea. Her family reports that she has been goofy. She does have a history of hypertension. Blood pressure is stable. She denies any chest pain, palpitations or anginal equivalents. OBJECTIVE: Temperature 97.9 degrees, pulse 102, respirations 19, BP 140/74. CV: Regular rate and rhythm. Lungs clear. Abdomen soft, nontender, with active bowel sounds. No hepatosplenomegaly. No abdominal bruits. ASSESSMENT AND PLAN: 1. Hypertension. Her blood pressure is stable. We will continue losartan/hydrochlorothiazide 100/12.5 mg daily and amlodipine 5 mg daily. 2. Chronic pain secondary to multiple thoracic compression fractures. We will continue Miacalcin and Forteo to improve bone strength. Because of the nausea and mental status changes, I am going to reduce the OxyContin to 20 mg p.o. q.12 hours and will follow her clinically. cc: Cesar Treviño MD
[2019-09-27] MEDS: AMBIEN PO PRN (20:41)
[2019-09-28] MEDS: PERCOCET-5 PO PRN ×3 (00:48→13:42)
[2019-09-28] MEDS: CARAFATE PO SCH ×4 (02:13→21:15)
[2019-09-28] MEDS: PHENERGAN PO PRN ×2 (05:48→15:38)
[2019-09-28] MEDS: HYZAAR 100/12.5 MG TAB PO SCH (09:03)
[2019-09-28] MEDS: FORTICAL NAS SCH (09:03)
[2019-09-28] MEDS: OXYCONTIN PO SCH (09:03)
[2019-09-28] MEDS: NORVASC PO SCH (09:03)
[2019-09-28] MEDS: MYCOSTATIN SUSP PO SCH ×4 (09:03→21:15)
[2019-09-28] MEDS: FORTEO SUBQ SCH (09:04)
[2019-09-28] MEDS: SPIRIVA INH SCH (10:55)
[2019-09-28] MEDS: ADVAIR 250/50 DISKUS INH SCH ×2 (10:55→20:26)
[2019-09-28] MEDS ORDERED: AMBIEN PO PRN ×2 (13:02→20:57)
[2019-09-28] MEDS: DULCOLAX PR PRN (13:38)
--- NOTE | 2019-09-28 14:20 | PROGRESS NOTE ---
DATE: 09/28/2019 SUBJECTIVE: Ms. Martinez was diagnosed with thrush. She has been taking nystatin swish and swallow 4 times daily. She has much less mouth soreness and tongue swelling. Since reducing the dosage of OxyContin to 20 mg b.i.d. her pain control has remained fairly stable. 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 The nausea has improved dramatically on the lower dosages. She seems much more alert and interactive. OBJECTIVE: Vital Signs: She is afebrile. Vital signs are stable. Cardiovascular: CV regular rate and rhythm. Lungs: Clear. Abdomen: Soft, nontender with active bowel sounds. ASSESSMENT AND PLAN: 1. Thrush. We will continue nystatin swish and swallow 10 mils q.6 hours. 2. Severe back pain secondary to multilevel compression fractures of the thoracic spine. We will continue Miacalcin and Forteo to treat the underlying osteoporosis. We will continue OxyContin 20 mg b.i.d. and use Percocet as needed for breakthrough pain. We talked to Ms. Martinez about potentially the need for inpatient rehab, but I am not really sure that she would cooperate with rehab. PLAN: The plans are to get her home with home health. If things do not work out at home, we will try to go to rehab from home as long as it is within 30 days of discharge from the hospital. cc: Cesar Treviño MD
[2019-09-28] MEDS: LOVENOX SUBQ SCH (17:42)
[2019-09-28] MEDS ORDERED: OXYCONTIN PO SCH (21:00)
[2019-09-29] MEDS: PERCOCET-5 PO PRN ×2 (00:13→06:14)
[2019-09-29] MEDS: PHENERGAN PO PRN (05:34)
[2019-09-29] MEDS: CARAFATE PO SCH (05:36)
[2019-09-29] MEDS: ADVAIR 250/50 DISKUS INH SCH (08:15)
[2019-09-29] MEDS: SPIRIVA INH SCH (08:15)
[2019-09-29 08:44] VITALS: BP 133/93
--- NOTE | 2019-10-12 15:09 | DISCHARGE SUMMARY ---
ADMISSION DATE: 09/20/2019 DISCHARGE DATE: 09/29/2019 DISCHARGE DIAGNOSES: 1. Multiple compression fractures of the thoracic spine. 2. Chronic low back pain secondary to lumbar spinal stenosis with neurogenic claudication. 3. Essential hypertension. 4. Chronic obstructive pulmonary disease. DISCHARGE INSTRUCTIONS: 1. Return to clinic in 1 week to see me, Dr. Jimmy Treviño, in anticipation of a transition of care visit. 2. We will make arrangements for home health referral with [facility]. 3. Activity as tolerated. 4. Healthy heart diet. MEDICATIONS: Ambien 10 mg at bedtime p.r.n. insomnia. Fortical 1 spray to the nose daily and alternate sides to avoid nosebleeds. Amlodipine 5 mg daily, oxycodone 5 mg/325 one q.6 hours p.r.n. pain, Carafate 1 g q.6 hours, Forteo 20 mcg subcu daily, losartan HCT 100/12.5 mg daily, oxycodone ER 20 mg b.i.d., Spiriva 1 puff daily. DISCHARGE PHYSICAL EXAMINATION: General: This is an elderly, frail, 73-year-old lady in no apparent distress. She is afebrile. Vital signs are stable. CV: Regular rate and rhythm. Lungs: Clear. Abdomen: Soft, nontender with active bowel sounds. No hepatosplenomegaly. No abdominal bruits. HOSPITAL COURSE: Ms. Martinez has a longstanding history of osteoporosis. She presented to the ER with worsening thoracic back pain. She had numerous compression fractures of the thoracic spine and lumbar spine. The patient was admitted to [facility] for pain control. The patient was initially placed on Dilaudid 1 to 2 mg q.3 hours p.r.n. pain. She has undergone a previous exhaustive workup for compression fracture. Serum protein electrophoresis was negative for multiple myeloma. She had a bone biopsy, which demonstrated no multiple myeloma or osteomyelitis. A PTH was not consistent with hyperparathyroidism. We felt that the compression fractures were due to inactivity and severe underlying osteoporosis. We tried to aggressively treat her underlying osteoporosis by adding Miacalcin which would help with pain control and initiating Forteo. She did not have any renal insufficiency after administration of fluids, or hypercalcemia which would have contraindicated the use of Forteo. We tried IV Dilaudid for several days, but her pain intensified. We consulted Dr. Evangelista López who initiated the pain pump. When we lost IV access we transitioned her to oral OxyContin and titrated as indicated. She was receiving fairly fair pain control on Oxy Contin 20 mg b.i.d. and Percocet for breakthrough pain. Physical therapy was consulted to see the patient. Activity was gradually increased. We made arrangements for home health. She will take the Forteo for 2 years and then will use Prolia or Reclast for maintenance. She has a longstanding history of hypertension. Her blood pressure fluctuated. We adjusted her blood pressure medicines with stabilization of her blood pressure. DISPOSITION: Having reached maximum hospital benefit, the patient was discharged in stable condition. cc: Cesar Treviño MD
== END 2019-09-29 09:42 | disposition home health service (06) | DRG 543 ==
LOC: SUPCPDRO → ED 13:31 → 1N 13:31
PROVIDERS: ADMIT Internal Medicine; ATTEND Internal Medicine